=== PATIENT | male | born 1940 | race Caucasian/White ===

== ENCOUNTER 2016-02-24 12:08 | Observation (INO) | payer OTHER ==
[~2016-02-24] VITALS: Ht 177.8 cm; Wt 117.5 kg
[2016-02-24] MEDS ORDERED: ROSUVASTATIN CA20 MG PO (12:57)
[2016-02-24] MEDS ORDERED: TRAMADOL HCL50 MG PO (12:58)
[2016-02-24] MEDS ORDERED: METFORMIN HCL1000 MG PO (12:58)
[2016-02-24] MEDS ORDERED: LISINOPRIL2.5 MG PO (12:58)
[2016-02-24 13:35] LABS: HEMATOCRIT 40.5 % (38.0-50.0); MCH 30.8 PG (29.0-34.0); MCHC 34.6 G/DL (30.0-36.0); MCV 89.2 FL (86-99); MEAN PLAT.VOLUME 9.8 uM^3 (9.0-12.4); PLATELET COUNT 203 K/uL (156-360); RBC DIS.WIDTH-CV 12.7 % (11.8-14.6); RBC DIS.WIDTH-SD 40.6 % (39-53); RED BLOOD COUNT 4.54 M/uL (4.00-5.50); WHITE BLOOD COUNT 9.2 K/uL (4.1-10.2)
[2016-02-24 13:39] LABS: TROP-I INTERPRETATION NEGATIVE; TROPONIN-I < 0.01 ng/mL (0.0-0.30)
[2016-02-24 13:43] LABS: CHLORIDE 104 mEq/L (99-109); POTASSIUM 4.9 mEq/L (3.7-5.4); SODIUM 137 mEq/L (136-147)
[2016-02-24 13:45] LABS: GLUCOSE 202 mg/dL (70-99)
[2016-02-24 13:46] LABS: ANION GAP 8 MEQ/L (2-14)
[2016-02-24 13:49] LABS: GFR ESTIMATE (CALCULATED) > 59 mL/min/
[2016-02-24 13:50] LABS: UREA NITROGEN (BUN) 12 mg/dL (9-23)
[2016-02-24] MEDS ORDERED: DAILY VALUE1 EACH PO (14:27)
[2016-02-24] MEDS ORDERED: VITAMIN C500 M1 PO (14:27)
[2016-02-24] MEDS ORDERED: ASPIR 8181 M1 PO (14:28)
[2016-02-24 17:35] LABS: TROP-I INTERPRETATION NEGATIVE; TROPONIN-I < 0.01 ng/mL (0.0-0.30)
[2016-02-24 19:29] VITALS: BP 159/74
[2016-02-24] MEDS ORDERED: MOBIC7.5 MG PO (19:35)
[2016-02-24 23:58] VITALS: BP 120/58
[2016-02-25 01:11] LABS: TROP-I INTERPRETATION NEGATIVE; TROPONIN-I < 0.01 ng/mL (0.0-0.30)
[2016-02-25 04:14] VITALS: BP 116/54
[2016-02-25 07:14] LABS: ANION GAP 5 MEQ/L (2-14); CHLORIDE 101 MEQ/L (99-109); GFR ESTIMATE (CALCULATED) > 59 mL/min/; GLUCOSE 144 mg/dL (70-99); POTASSIUM 4.1 MEQ/L (3.7-5.4); SAMPLE HEMOLYSIS CHECK 0; SAMPLE ICTERIC CHECK 1; SAMPLE LIPEMIA CHECK 0; SODIUM 136 MEQ/L (136-147); UREA NITROGEN (BUN) 12 mg/dL (9-23)
[2016-02-25 08:19] VITALS: BP 107/52
[2016-02-25] MEDS ORDERED: PROTONIX40 MG PO (09:30)
[2016-02-25] MEDS ORDERED: PANTOPRAZOLE SO40 MG PO (09:32)
== END 2016-02-25 11:25 | disposition home or self-care (01) ==
LOC: EME 12:08 → EDOF 14:30 → 5WEST 14:30 → EDOF 14:30 → 5WEST 19:08
PROVIDERS: Internal Medicine
DX: R07.9 Chest pain, unspecified (principal); K21.9 Gastro-esophageal reflux disease without esophagitis; I10 Essential (primary) hypertension; E11.9 Type 2 diabetes mellitus without complications; E78.5 Hyperlipidemia, unspecified; Z87.891 Personal history of nicotine dependence; Z79.84 Long term (current) use of oral hypoglycemic drugs; Z82.49 Family history of ischemic heart disease and other diseases of the circulatory system
CPT/HCPCS: 71020; 74177; 80048; 84484; 85027; 93005; 99281; 99285; C9113; G0378; J1885; J2270; J2405

== ENCOUNTER → 2016-03-17 | Outpatient (CLI) | payer OTHER ==
[~2016-03-17] MED LIST: ASPIR 8181 M1 PO; DAILY VALUE1 EACH PO; LISINOPRIL2.5 MG PO; METFORMIN HCL1000 MG PO; MOBIC7.5 MG PO; PANTOPRAZOLE SO40 MG PO; PROTONIX40 MG PO; ROSUVASTATIN CA20 MG PO; TRAMADOL HCL50 MG PO; VITAMIN C500 M1 PO
== END | disposition home or self-care (01) ==
DX: M17.11 Unilateral primary osteoarthritis, right knee (principal)
CPT/HCPCS: 97110 GP; 97150 GO; 97161 GP; 97165 GO

== ENCOUNTER 2016-04-27 06:44 | Inpatient (IN) | payer OTHER ==
[~2016-04-27] VITALS: Ht 177.8 cm; Wt 96.3 kg
[~2016-04-27 06:44] MED LIST changes: +IRON325 MG PO; +ULTRAM50 MG PO
[2016-04-27 07:34] LABS: POINT-OF-CARE METER ID UU14174212
[2016-04-27 07:49] VITALS: BP 145/78
[2016-04-27 08:13] VITALS: BP 145/78
[2016-04-27 11:39] LABS: POINT-OF-CARE METER ID UU13113675
[2016-04-27 11:52] LABS: HEMATOCRIT 36.6 % (38.0-50.0); MCH 30.3 PG (29.0-34.0); MCHC 33.3 G/DL (30.0-36.0); MCV 90.8 FL (86-99); MEAN PLAT.VOLUME 9.5 uM^3 (9.0-12.4); RBC DIS.WIDTH-CV 13.1 % (11.8-14.6); RBC DIS.WIDTH-SD 43.4 % (39-53); RED BLOOD COUNT 4.03 M/uL (4.00-5.50); WHITE BLOOD COUNT 5.7 K/uL (4.1-10.2)
[2016-04-27 12:12] LABS: PLATELET COUNT 162 K/uL (156-360)
[2016-04-27 12:39] LABS: HEMATOLOGY COMMENT 1 SMEAR COMPATIBLE
[2016-04-27 13:05] VITALS: BP 122/60
[2016-04-27] MEDS ORDERED: IRON325 MG PO (15:44)
[2016-04-27] MEDS ORDERED: LOVENOX40 MG/0.4 SC (15:46)
[2016-04-27] MEDS ORDERED: ENDOCET 5-3251 EACH PO (15:46)
[2016-04-27] MEDS ORDERED: CELECOXIB200 MG PO (15:46)
[2016-04-27 16:03] VITALS: BP 144/64
[2016-04-27 17:08] LABS: POINT-OF-CARE METER ID UU13113712
[2016-04-27 20:05] VITALS: BP 161/74
[2016-04-27 22:16] LABS: POINT-OF-CARE METER ID UU13113712
[2016-04-28 00:20] VITALS: BP 142/75
[2016-04-28 04:29] VITALS: BP 141/69
[2016-04-28 06:29] LABS: ANION GAP 8 MEQ/L (2-14); CHLORIDE 99 MEQ/L (99-109); GFR ESTIMATE (CALCULATED) > 59 mL/min/; GLUCOSE 173 mg/dL (70-99); POTASSIUM 4.2 MEQ/L (3.7-5.4); SAMPLE HEMOLYSIS CHECK 0; SAMPLE ICTERIC CHECK 0; SAMPLE LIPEMIA CHECK 0; SODIUM 135 MEQ/L (136-147); UREA NITROGEN (BUN) 8 mg/dL (9-23)
[2016-04-28 07:05] LABS: HEMATOCRIT 37.3 % (38.0-50.0); MCV 91.2 FL (86-99)
[2016-04-28 08:16] VITALS: BP 113/57
[2016-04-28 11:37] LABS: POINT-OF-CARE METER ID UU13113712
[2016-04-28 12:24] VITALS: BP 117/56
[2016-04-28 16:25] LABS: POINT-OF-CARE METER ID UU13113712
[2016-04-28 20:26] VITALS: BP 96/51
[2016-04-28 21:53] LABS: POINT-OF-CARE METER ID UU13113712
[2016-04-29] VITALS (7 sets, daily range): BP systolic 74–130; BP diastolic 50–60
[2016-04-29 05:29] LABS: HEMATOCRIT 36.1 % (38.0-50.0); MCV 91.4 FL (86-99)
[2016-04-29 07:57] LABS: POINT-OF-CARE METER ID UU13113712
[2016-04-29] MEDS ORDERED: OXYCONTIN10 MG PO (08:46)
[2016-04-29 09:34] LABS: POINT-OF-CARE METER ID UU13113712
[2016-04-29 11:30] LABS: ANION GAP 7 MEQ/L (2-14); CHLORIDE 100 MEQ/L (99-109); POTASSIUM 4.4 MEQ/L (3.7-5.4); SAMPLE HEMOLYSIS CHECK 0; SAMPLE ICTERIC CHECK 0; SAMPLE LIPEMIA CHECK 0; SODIUM 133 MEQ/L (136-147)
[2016-04-29 11:37] LABS: GFR ESTIMATE (CALCULATED) 42 mL/min/; GLUCOSE 196 mg/dL (70-99)
[2016-04-29 11:39] LABS: UREA NITROGEN (BUN) 25 mg/dL (9-23)
[2016-04-29 11:47] LABS: POINT-OF-CARE METER ID UU13113712
[2016-04-29 16:47] LABS: POINT-OF-CARE METER ID UU13113712
[2016-04-29 22:26] LABS: POINT-OF-CARE METER ID UU13113712
[2016-04-30] VITALS (7 sets, daily range): BP systolic 109–140; BP diastolic 58–73
[2016-04-30 07:35] LABS: POINT-OF-CARE METER ID UU13113712
[2016-04-30 09:46] LABS: ANION GAP 6 MEQ/L (2-14); CHLORIDE 99 MEQ/L (99-109); POTASSIUM 4.4 MEQ/L (3.7-5.4); SAMPLE HEMOLYSIS CHECK 0; SAMPLE ICTERIC CHECK 0; SAMPLE LIPEMIA CHECK 0; SODIUM 133 MEQ/L (136-147)
[2016-04-30 09:55] LABS: GFR ESTIMATE (CALCULATED) > 59 mL/min/; GLUCOSE 207 mg/dL (70-99); UREA NITROGEN (BUN) 20 mg/dL (9-23)
[2016-04-30 11:28] LABS: POINT-OF-CARE METER ID UU13113712
[2016-05-01 05:25] VITALS: BP 119/72
[2016-05-01 06:46] LABS: GFR ESTIMATE (CALCULATED) > 59 mL/min/
[2016-05-01 08:30] VITALS: BP 122/58; BP 130/62
== END 2016-05-01 15:26 | disposition home or self-care (01) | DRG 470 ==
LOC: 3WEST 06:44 → 2SOUTH 06:44 → 3WEST 12:39 → 2SOUTH 13:33 → 3WEST 04-30 11:48 → 3EAST 04-30 15:03
PROVIDERS: Orthopaedic Surgery; Physician Assistant
PROC: 0SRC0J9 Replacement of Right Knee Joint with Synthetic Substitute, Cemented, Open Approach (ICD-10-PCS; principal; 2016-04-27)
DX: M17.11 Unilateral primary osteoarthritis, right knee (principal); I10 Essential (primary) hypertension; E78.00 Pure hypercholesterolemia, unspecified; E11.9 Type 2 diabetes mellitus without complications; I95.9 Hypotension, unspecified; R09.02 Hypoxemia; R00.0 Tachycardia, unspecified; M25.561 Pain in right knee; Z79.82 Long term (current) use of aspirin
CPT/HCPCS: 71010; 71275; 73560; 80048; 82565; 82948; 84520; 85014; 85018; 85027; 93005; J0690; J1170; J1650; J1815; J2250; J2405; J3010; J7030; J7050

== ENCOUNTER 2017-04-23 12:50 | Day surgery (SDC) | payer OTHER ==
[~2017-04-23] VITALS: Ht 175.3 cm; Wt 92.9 kg
[~2017-04-23 12:50] MED LIST changes: +ASPIRIN81 M2 PO; +CELEBREX200 MG PO; +CELECOXIB200 MG PO; +ENDOCET 5-3251 EACH PO; +FLUNISOLIDE25 ML BOTH NARES; +LOVENOX40 MG/0.4 SC; +MICROZIDE12.5 M1 PO; +MULTIPLE VITAM1 EAC1 PO; +OXYCONTIN10 MG PO; +STOOL SOFTENER100 MG PO; +VENTOLIN HFA18 GM IH; +VOLTAREN 1% GE100 GM TP; +ZESTRIL2.5 MG PO
[2017-04-23 13:25] VITALS: BP 148/71
[2017-04-23 17:55] VITALS: BP 160/82
[2017-04-23] MEDS ORDERED: NORCO 5/3251 TABLET PO (18:09)
[2017-04-23 18:35] VITALS: BP 142/72
== END 2017-04-23 18:40 | disposition home or self-care (01) ==
LOC: SDC
PROVIDERS: Surgery
DX: R13.10 Dysphagia, unspecified (principal); I87.8 Other specified disorders of veins; Z45.2 Encounter for adjustment and management of vascular access device; C76.0 Malignant neoplasm of head, face and neck; M19.90 Unspecified osteoarthritis, unspecified site; E11.9 Type 2 diabetes mellitus without complications; Z79.84 Long term (current) use of oral hypoglycemic drugs; I10 Essential (primary) hypertension
CPT/HCPCS: 71045; 82948; 93005; C1751; C1769; J0690

== ENCOUNTER 2017-05-10 10:33 | Emergency (ER) | payer OTHER ==
[~2017-05-10] VITALS: Ht 172.7 cm; Wt 90.9 kg
[~2017-05-10 10:33] MED LIST changes: +NORCO 5/3251 TABLET PO
[2017-05-10 11:20] LABS: BASOPHIL (%) 0.3 % (0-1); EOSINOPHIL (%) 0.1 % (0-5); IMMATURE GRANULOCYTE (%) 0.4 % (0.0-0.7); LYMPHOCYTE (%) 5.6 % (15-42); LYMPHOCYTE COUNT 0.6 K/uL (1.0-2.8); MCH 31.6 PG (29.0-34.0); MCV 90.3 FL (86-99); MONOCYTE (%) 9.9 % (3-12); NEUTROPHIL (%) 83.7 % (45-76); NEUTROPHIL COUNT 8.4 K/uL (1.8-6.4); PLATELET COUNT 255 K/uL (156-360); RBC DIS.WIDTH-CV 12.1 % (11.8-14.6); RBC DIS.WIDTH-SD 39.4 % (39-53); RED BLOOD COUNT 4.43 M/uL (4.00-5.50); WHITE BLOOD COUNT 10.1 K/uL (4.1-10.2)
[2017-05-10 11:29] LABS: CHLORIDE 93 mEq/L (99-109); POTASSIUM 4.2 mEq/L (3.7-5.4); SODIUM 131 mEq/L (136-147)
[2017-05-10 11:30] LABS: GLUCOSE 205 mg/dL (70-99)
[2017-05-10 11:34] LABS: CREATININE 1.2 mg/dL (0.6-1.3); GFR ESTIMATE (CALCULATED) > 59 mL/min/ (58.99-99999)
[2017-05-10 11:35] LABS: UREA NITROGEN (BUN) 22 mg/dL (9-23)
[2017-05-10 13:39] VITALS: BP 111/70
== END 2017-05-10 13:41 | disposition home or self-care (01) ==
LOC: EME 10:33
PROVIDERS: Emergency Medicine
DX: R19.7 Diarrhea, unspecified (principal); R53.1 Weakness; R22.1 Localized swelling, mass and lump, neck; Z92.21 Personal history of antineoplastic chemotherapy; Z92.3 Personal history of irradiation; E11.9 Type 2 diabetes mellitus without complications; Z79.84 Long term (current) use of oral hypoglycemic drugs; K21.9 Gastro-esophageal reflux disease without esophagitis; Z87.442 Personal history of urinary calculi; Z79.82 Long term (current) use of aspirin; Z93.1 Gastrostomy status
CPT/HCPCS: 80048; 85025 91; 87493; 99281; 99284; J7040

== ENCOUNTER 2017-06-22 13:41 | Emergency (ER) | payer OTHER ==
[~2017-06-22] VITALS: Ht 177.8 cm; Wt 81.8 kg
[2017-06-22 14:27] LABS: HEMATOCRIT 34.4 % (38.0-50.0); HEMOGLOBIN 12.5 G/DL (12.5-16.6); MCH 33.7 PG (29.0-34.0); MCHC 36.3 G/DL (30.0-36.0); MCV 92.7 FL (86-99); RBC DIS.WIDTH-CV 15.3 % (11.8-14.6); RBC DIS.WIDTH-SD 50.7 % (39-53); RED BLOOD COUNT 3.71 M/uL (4.00-5.50); WHITE BLOOD COUNT 2.8 K/uL (4.1-10.2)
[2017-06-22 14:31] LABS: PLATELET COUNT 97 K/uL (156-360)
[2017-06-22 14:36] LABS: ALBUMIN 3.4 g/dL (3.2-4.8); CHLORIDE 97 mEq/L (99-109); POTASSIUM 3.7 mEq/L (3.7-5.4); SODIUM 141 mEq/L (136-147)
[2017-06-22 14:39] LABS: GLUCOSE 189 mg/dL (70-99); TOTAL PROTEIN 6.4 g/dL (6.4-8.3)
[2017-06-22 14:41] LABS: TOTAL BILIRUBIN 1.6 mg/dL (0.0-1.0)
[2017-06-22 14:42] LABS: ALKALINE PHOSPHATASE 81 IU/L (3-129); CREATININE 0.9 mg/dL (0.6-1.3); GFR ESTIMATE (CALCULATED) > 59 mL/min/ (58.99-99999)
[2017-06-22 14:43] LABS: UREA NITROGEN (BUN) 13 mg/dL (9-23)
[2017-06-22 14:44] LABS: AST (GOT) 20 IU/L (2-34)
[2017-06-22 14:45] LABS: ALT (GPT) 22 IU/L (3-49)
[2017-06-22] MEDS ORDERED: ZOFRAN ODT8 MG PO (15:58)
[2017-06-22 16:30] VITALS: BP 120/55
== END 2017-06-22 16:30 | disposition home or self-care (01) ==
LOC: EME 13:41
PROVIDERS: Emergency Medicine Emergency Medical Services
DX: K59.00 Constipation, unspecified (principal); R13.10 Dysphagia, unspecified; R10.9 Unspecified abdominal pain; C11.9 Malignant neoplasm of nasopharynx, unspecified; Z92.21 Personal history of antineoplastic chemotherapy; K21.9 Gastro-esophageal reflux disease without esophagitis; E78.00 Pure hypercholesterolemia, unspecified; E11.9 Type 2 diabetes mellitus without complications; Z79.84 Long term (current) use of oral hypoglycemic drugs; Z79.82 Long term (current) use of aspirin; Z87.442 Personal history of urinary calculi
CPT/HCPCS: 74022; 80053; 85027; 92610 GN; 99281; 99284; G8996 GN CK; G8997 GN CK; G8998 GN CK

== ENCOUNTER 2017-06-29 09:41 | Inpatient (IN) | payer OTHER ==
[~2017-06-29] VITALS: Ht 172.7 cm; Wt 83.1 kg
[~2017-06-29 09:41] MED LIST changes: +METFORMIN HCL500 MG PO; +ZOFRAN ODT8 MG PO
[2017-06-29 10:21] LABS: BASOPHIL (%) 0.2 % (0-1); EOSINOPHIL (%) 0.2 % (0-5); HEMATOCRIT 33.2 % (38.0-50.0); IMMATURE GRANULOCYTE (%) 0.5 % (0.0-0.7); LYMPHOCYTE (%) 12.4 % (15-42); LYMPHOCYTE COUNT 0.7 K/uL (1.0-2.8); MCH 33.3 PG (29.0-34.0); MCHC 36.1 G/DL (30.0-36.0); MCV 92.2 FL (86-99); MONOCYTE (%) 13.5 % (3-12); MONOCYTE COUNT 0.8 K/uL (0-0.8); NEUTROPHIL (%) 73.2 % (45-76); NEUTROPHIL COUNT 4.1 K/uL (1.8-6.4); RBC DIS.WIDTH-SD 53.6 % (39-53); WHITE BLOOD COUNT 5.6 K/uL (4.1-10.2)
[2017-06-29 10:22] LABS: PLATELET COUNT 136 K/uL (156-360)
[2017-06-29 10:30] LABS: CHLORIDE 97 mEq/L (99-109); POTASSIUM 3.6 mEq/L (3.7-5.4); SODIUM 137 mEq/L (136-147)
[2017-06-29 10:31] LABS: GLUCOSE 201 mg/dL (70-99)
[2017-06-29 10:35] LABS: CREATININE 0.8 mg/dL (0.6-1.3); GFR ESTIMATE (CALCULATED) > 59 mL/min/ (58.99-99999)
[2017-06-29 10:36] LABS: UREA NITROGEN (BUN) 9 mg/dL (9-23)
[2017-06-29] MEDS ORDERED: ZOFRAN ODT8 MG PO (12:10)
[2017-06-29 12:29] LABS: MAGNESIUM 1.4 mg/dL (1.3-2.7)
[2017-06-29 13:53] VITALS: BP 101/65
[2017-06-29 15:19] VITALS: BP 101/59
[2017-06-29 19:03] VITALS: BP 94/58
[2017-06-29 23:10] LABS: INTER. NORMALIZED RATIO 1.5
[2017-06-30] VITALS (7 sets, daily range): BP systolic 92–116; BP diastolic 50–62
[2017-06-30 05:17] LABS: INTER. NORMALIZED RATIO 1.6
[2017-06-30 05:29] LABS: HEMATOCRIT 28.3 % (38.0-50.0); HEMOGLOBIN 9.8 G/DL (12.5-16.6); MCH 32.7 PG (29.0-34.0); MCHC 34.6 G/DL (30.0-36.0); MCV 94.3 FL (86-99); PLATELET COUNT 112 K/uL (156-360); RBC DIS.WIDTH-CV 16.5 % (11.8-14.6); RBC DIS.WIDTH-SD 56.1 % (39-53); WHITE BLOOD COUNT 4.7 K/uL (4.1-10.2)
[2017-06-30 06:37] LABS: PTT 150.6 SEC (25-37)
[2017-06-30 08:39] LABS: HEMOGLOBIN A1c (GLYCOHEMOGLOB) 6.8 % (Below 5.7)
[2017-06-30 15:50] LABS: TROP-I INTERPRETATION NEGATIVE; TROPONIN-I 0.02 ng/mL (0.0-0.30)
[2017-06-30 15:51] LABS: INTER. NORMALIZED RATIO 1.7
[2017-06-30 15:59] LABS: PTT 71.9 SEC (25-37)
[2017-06-30 16:55] LABS: ALBUMIN 2.5 G/DL (3.2-4.8); CHLORIDE 103 MEQ/L (99-109); SODIUM 137 MEQ/L (136-147); TOTAL BILIRUBIN 0.8 MG/DL (0.0-1.0)
[2017-06-30 17:00] LABS: ALKALINE PHOSPHATASE 69 IU/L (3-129); ALT (GPT) 12 IU/L (3-49); AST (GOT) 16 IU/L (2-34); CREATININE 0.6 MG/DL (0.6-1.3); GFR ESTIMATE (CALCULATED) > 59 mL/min/ (58.99-99999); GLUCOSE 174 mg/dL (70-99); LIPASE 24 U/L (1.0-51.0); TOTAL PROTEIN 5.3 G/DL (6.4-8.3); UREA NITROGEN (BUN) 10 mg/dL (9-23)
[2017-07-01] VITALS (7 sets, daily range): BP systolic 101–133; BP diastolic 55–82
[2017-07-01 03:25] LABS: BASOPHIL (%) 0.2 % (0-1); EOSINOPHIL (%) 0.6 % (0-5); HEMATOCRIT 27.4 % (38.0-50.0); HEMOGLOBIN 9.6 G/DL (12.5-16.6); IMMATURE GRANULOCYTE (%) 0.6 % (0.0-0.7); LYMPHOCYTE (%) 14.6 % (15-42); LYMPHOCYTE COUNT 0.7 K/uL (1.0-2.8); MCH 33.2 PG (29.0-34.0); MCV 94.8 FL (86-99); MONOCYTE (%) 11.9 % (3-12); MONOCYTE COUNT 0.6 K/uL (0-0.8); NEUTROPHIL (%) 72.1 % (45-76); NEUTROPHIL COUNT 3.5 K/uL (1.8-6.4); PLATELET COUNT 122 K/uL (156-360); RBC DIS.WIDTH-CV 16.5 % (11.8-14.6); RBC DIS.WIDTH-SD 57.1 % (39-53); RED BLOOD COUNT 2.89 M/uL (4.00-5.50); WHITE BLOOD COUNT 4.8 K/uL (4.1-10.2)
[2017-07-01 04:13] LABS: INTER. NORMALIZED RATIO 1.8
[2017-07-01 05:25] LABS: CHLORIDE 104 mEq/L (99-109); MAGNESIUM 1.3 mg/dL (1.3-2.7); POTASSIUM 3.7 mEq/L (3.7-5.4); SODIUM 139 mEq/L (136-147)
[2017-07-01 05:29] LABS: GLUCOSE 111 mg/dL (70-99)
[2017-07-01 05:30] LABS: PHOSPHORUS 1.3 mg/dL (2.5-4.9)
[2017-07-01 05:31] LABS: CREATININE 0.7 mg/dL (0.6-1.3); GFR ESTIMATE (CALCULATED) > 59 mL/min/ (58.99-99999)
[2017-07-01 05:32] LABS: UREA NITROGEN (BUN) 7 mg/dL (9-23)
[2017-07-01 05:34] LABS: LIPASE 20 U/L (1.0-51.0)
[2017-07-02 07:26] VITALS: BP 130/61
[2017-07-02 12:08] VITALS: BP 133/62
[2017-07-02] MEDS ORDERED: LOVENOX80 MG/0.8 SC (14:27)
[2017-07-02] MEDS ORDERED: CYCLOBENZAPRINE10 MG PO (14:27)
[2017-07-02] MEDS ORDERED: NEUTRA-PHOS,1 PACKET PO (14:28)
[2017-07-02] MEDS ORDERED: SENNA PLUS TAB1 EACH PO (14:30)
[2017-07-02] MEDS ORDERED: POLYETHYLENE GL17 GM PO (14:30)
[2017-07-02 16:10] VITALS: BP 113/60
[2017-07-02 20:00] VITALS: BP 110/58
[2017-07-02 23:45] VITALS: BP 93/58
[2017-07-03 05:11] VITALS: BP 102/59
[2017-07-03 07:22] VITALS: BP 126/69
[2017-07-03 12:10] VITALS: BP 111/69
== END 2017-07-03 16:41 | DRG 176 ==
LOC: EME 09:41 → 4SOUTH 11:45 → EDOF 11:45 → ENRESERV 11:51 → 4SOUTH 13:22
PROVIDERS: Emergency Medicine; Hospitalist; Internal Medicine; Physician Assistant
DX: I26.99 Other pulmonary embolism without acute cor pulmonale (principal); I95.1 Orthostatic hypotension; K94.29 Other complications of gastrostomy; R10.9 Unspecified abdominal pain; E86.0 Dehydration; E44.0 Moderate protein-calorie malnutrition; C11.9 Malignant neoplasm of nasopharynx, unspecified; K59.00 Constipation, unspecified; R13.10 Dysphagia, unspecified; S20.212A Contusion of left front wall of thorax, initial encounter; W18.30XA Fall on same level, unspecified, initial encounter; Y92.009 Unspecified place in unspecified non-institutional (private) residence as the place of occurrence of the external cause; R11.2 Nausea with vomiting, unspecified; I10 Essential (primary) hypertension; E11.9 Type 2 diabetes mellitus without complications; I70.0 Atherosclerosis of aorta; K40.90 Unilateral inguinal hernia, without obstruction or gangrene, not specified as recurrent; J01.00 Acute maxillary sinusitis, unspecified; E78.5 Hyperlipidemia, unspecified; K21.9 Gastro-esophageal reflux disease without esophagitis; R26.9 Unspecified abnormalities of gait and mobility; Z92.21 Personal history of antineoplastic chemotherapy; Z92.3 Personal history of irradiation; Z96.651 Presence of right artificial knee joint; Z87.442 Personal history of urinary calculi; Z79.84 Long term (current) use of oral hypoglycemic drugs; Z79.82 Long term (current) use of aspirin
CPT/HCPCS: 70450; 71045; 71101; 71275; 74018; 74019; 80048; 80053; 82272; 83036; 83690; 83735; 84100; 84484; 85025; 85027; 85610; 85730; 92526 GN; 92610 GN; 93005; 93306; 94799; 97530 GP; 99281; 99285; G0378; J1650; J2405; J3475; J7030

== ENCOUNTER → 2017-07-28 | Outpatient (CLI) | payer OTHER ==
[~2017-07-28] MED LIST changes: +CYCLOBENZAPRINE10 MG PO; +LOVENOX80 MG/0.8 SC; +NEUTRA-PHOS,1 PACKET PO; +POLYETHYLENE GL17 GM PO; +SENNA PLUS TAB1 EACH PO
== END | disposition home or self-care (01) ==
LOC: AMB 08:00
PROC: 0JPT0WZ Removal of Totally Implantable Vascular Access Device from Trunk Subcutaneous Tissue and Fascia, Open Approach (ICD-10-PCS; principal; 2017-07-28)
DX: Z45.2 Encounter for adjustment and management of vascular access device (principal); I87.8 Other specified disorders of veins; Z92.21 Personal history of antineoplastic chemotherapy; Z92.3 Personal history of irradiation; Z85.89 Personal history of malignant neoplasm of other organs and systems